=== PATIENT | male | born 1985 | race Caucasian/White ===

== ENCOUNTER 2020-07-21 07:22 | Observation (INO) ==
--- NOTE | 2020-07-06 10:17 | Anesthesiology Consultation ---
Date of Service July 06, 2020 Assessment & Plan (1) Encounter for pre-operative examination: Chart Review Chart Review: Acceptable Risk for Surgery (pending preop Covid testing ) and Patient NOT seen in Pre Admission Testing Per nursing assessment 07/06/2020, patient resides in [facility]. Travels to [facility] for medical appts. Wears PPE when required in public places (nursing did educate patient on self quarantining after Covid test and limiting travel/wearing PPE). No known Covid positive contacts or Covid related symptoms. No known Covid infection in the past 90 days. Pt scheduled for preop Covid testing 07/19/20= will await results. History Surgery Operation Date: 07/26/20 07:15 Proposed Procedures p L4-L5 Decompression with Coflex - Mahesh Hernandez DO Height/Weight Height: 5 ft 6 in Weight: 84.368 kg Allergies Allergy/AdvReac Type Severity Reaction Status Date / Time No Known Allergies Allergy Verified 07/06/20 08:06 Medications Home Medications Medication Instructions Recorded Confirmed Last Taken gabapentin 300 mg PO TID 07/06/20 07/06/20 Unknown oxycodone 10 mg PO Q4H PRN 07/06/20 07/06/20 Unknown Past Medical History Medical History Epistaxis FREQUENT IN FALL & WINTER Lumbar herniated disc Ruptured lumbar disc Spinal stenosis Past Family History Family History Other Family history of diabetes mellitus in grandfather Past Surgical History Surgical History History of hernia surgery Social History Smoking Status: Never smoker Do You Dip or Chew Tobacco: No (HX OF , NONE CURRENT / ADVISED NPO) Hx Alcohol Use: Yes (RARE) alcohol intake frequency: holidays/special occasions only substance use type: prescription drug Testing Laboratory Results Laboratory Tests 07/04/20 07/04/20 07/04/20 09:35 09:35 09:35 WBC 5.60 Hgb 15.7 Hct 45.9 Plt Count 177 PT 10.3 INR 1.0 Sodium 139 Potassium 4.2 Chloride 108 H Carbon Dioxide 29 BUN 14 Creatinine 0.84 Glucose 92 07/04/2020 = UA: Negative T&S: O positive, antibody negative Electrocardiogram Date: 07/04/20 Findings: + NSR @ (61 bpm) Poor data quality Early repolarization. Chest X-Ray Date: 07/04/20 Findings: + NAD
[~2020-07-21 07:22] MED LIST: ACETAMINOPHEN 500 MG TAB PO SCH; CeleBREX 200 MG CAP PO SCH; GABAPENTIN 900 MG DOSE PO SCH; LR 15ML/HR IV SCH; ceFAZolin 2000MG 2,000 MG/15 ML SYR IV SCH
[2020-07-21] MEDS ORDERED: ATROPINE SULFATE 0.1 MG/ML 10ML SYR IV PRN (08:30)
[2020-07-21] MEDS ORDERED: ONDANSETRON INJ 2 MG/ML 2 ML VIAL IV PRN ×2 (08:30→13:05)
[2020-07-21] MEDS ORDERED: HYDROmorphone INJ 2 MG/ML SYR/VIAL IV PRN (08:30)
[2020-07-21] MEDS ORDERED: ePHEDrine sulfate 50 MG/ML AMP IV PRN (08:30)
[2020-07-21] MEDS ORDERED: PROMETHAZINE HCL 12.5 MG in SODIUM CHLORIDE 0.9% 50 ML IV PRN ×2 (08:30→13:05)
[2020-07-21] MEDS ORDERED: fentaNYL citrate 100 MCG/2 ML VIAL ONE (09:21)
[2020-07-21] MEDS ORDERED: MIDAZOLAM HCL 1 MG/ML 2ML VIAL ONE (09:21)
--- NOTE | 2020-07-21 09:38 | History & Physical Bridge Note ---
Date of Service July 21, 2020 History & Physical Bridge Note I have examined the patient, reviewed the History & Physical and in the interval since the performance of the History & Physical I have noted the following changes of clinical significance: no changes noted
--- NOTE | 2020-07-21 09:39 | History & Physical Report ---
Date of Service July 21, 2020 Assessment & Plan (1) Lumbar disc herniation with radiculopathy: Admission and Anticipated Discharge Date Admission Date: L4-L5 decompression with Coflex History of Present Illness Chief Complaint: Back and leg pain Primary Care Provider: Cachorro Saenz This is a 35-year-old male who presents with chronic persistent back and leg pain. After failing course of nonoperative care is here for surgical invention. Allergies Allergy/AdvReac Type Severity Reaction Status Date / Time No Known Allergies Allergy Verified 07/21/20 07:36 Home Medications Medication Instructions Recorded Confirmed Type gabapentin 300 mg PO TID 07/06/20 07/21/20 History oxycodone 10 mg PO Q4H PRN 07/06/20 07/21/20 History Past Med/Surg History Medical History Epistaxis FREQUENT IN FALL & [place]INTER Lumbar herniated disc Ruptured lumbar disc Spinal stenosis Surgical History History of hernia surgery Family History Other Family history of diabetes mellitus in grandfather Social History Smoking Status: Never smoker Do You Dip or Chew Tobacco: No (HX OF , NONE CURRENT / ADVISED NPO); Hx Alcohol Use: Yes (RARE) Preferred Language: Citizen Of [place] Communication Ability: Effective Safety Grooving Machine Operator Required: No Beliefs That Will Affect Care: None Current Living Situation: Spouse and Family Other Information That Helps Us Care for You: No Feels Safe at Home: Yes Assistive Devices: Glasses Physical Exam Physical Exam: Patient is alert and oriented Heart regular rate and rhythm Lungs clear to auscultation Results & Data ([facility]) Vital Signs (Past 12 Hours) Vital Signs Temp Pulse Resp BP Pulse Ox 07/21/20 07:38 36.6 C 62 18 137/83 99
[2020-07-21] MEDS ORDERED: DexMEDEtomidine HCL IV 100 MCG/ML VIAL ONE (10:13)
[2020-07-21] MEDS ORDERED: BACITRACIN INJ 50,000 UNIT VIAL ONE (10:17)
[2020-07-21] MEDS ORDERED: BUPIVACAINE/EPINEPHRINE 0.5% MPF 1:200,000 30 ML VIAL ONE (10:17)
[2020-07-21] MEDS ORDERED: HYDROmorphone INJ 2 MG/ML SYR/VIAL ONE (10:49)
--- NOTE | 2020-07-21 11:25 | Operative Report ---
Post Operative Report Pre & Post Diagnosis Operation Date: 07/21/20 09:20 Pre-Op Diagnosis: Lumbar disc herniation with radiculopathy Post-Op Diagnosis: Lumbar disc herniation with radiculopathy I identified the patient and participated in the time-out.: Yes Procedure Operation Date: 07/21/20 09:20 Actual Procedures #1 Lumbar decompression with bilateral medial facetectomies and partial discectomy L4-5. #2 placement of 12 mm Coflex at L4-L5. Surgeon Mahesh Hernandez, DO Mechanic Insulator Cade Bourne Estimated Blood Loss 20 Findings Consistent with Post-Op Diagnosis Specimens None Indications This is a 35-year-old male who presents with severe radiculopathy after failing course of nonoperative care is here for surgical invention. Description of Procedure Patient was met with identified informed consent obtained. Patient was then taken to the operative suite underwent an patient placed in a prone position Nura table top Solomon frame. All bony prominences well-padded eyes inspected to ensure no external pressure placed upon them. This point the lumbar spine was prepped and draped in a sterile fashion. Sharp dissection with the assistance of Bovie cautery was performed down to and exposing the interlaminar space at L4-L5. A self-retaining retractors placed. Then performed a midline decompression including bilateral medial facetectomies for complete decompression. I then identified a massive disc condition at L4-L5 on the left. Was able to remove in its entirety. The area was explored several times to ensure all fragments addressed. I then placed a 12 mm Coflex in the interlaminar space. It was crimped into position. The incision was then copi ously irrigated 10 round ADAIR drain inserted. Was then closed with 1 Vicryl the fascia 2-0 Vicryl subcutaneously and 4 Monocryl for final skin closure. Steri- Strip sterile dressings placed. Patient waken taken PACU stable condition. Please note Cade Bourne was present at the entire procedure involved the patient positioning complex portions of the surgery and final skin closure. I attest to the content of the Intraoperative Record and any orders documented therein. Any exceptions are noted below.
[2020-07-21] MEDS ORDERED: FLOSEAL HEMOSTATIC MATRIX 10ML TOP ONE (11:26)
--- NOTE | 2020-07-21 11:43 | Fluoroscopy Report ---
FL spine 1V any level HISTORY: 35 years-old Male L4-L5 DECOMPRESSION WITH COFLEX history of chronic low back pain COMPARISON: None TECHNIQUE: One lateral spot fluoroscopic image of the lumbar spine was obtained utilizing 6.6 seconds fluoroscopy time FINDINGS: There is a spacer type metallic surgical device present interposed between the fourth and fifth spino us processes. Alignment appears satisfactory. Partially imaged radiodense structure anterior to the s acral promontory is likely external to the patient. IMPRESSION: Fluoroscopic assistance as above. ACT 112: Negative or not required by law. The above report was generated using voice recognition software. It may contain grammatical, syntax o r spelling errors. Electronically signed by: Israel Artis M.D. 07/21/2020 11:42 AM
[2020-07-21] MEDS: fentaNYL citrate 100 MCG/2 ML VIAL IV PRN ×2 (11:58→12:03)
--- NOTE | 2020-07-21 12:25 | Anesthesiology Progress Note ---
Date of Service July 21, 2020 Anesthesia Post Procedure Vital Signs Vital Signs: Temp Pulse Pulse Resp BP Pulse Ox 07/21/20 12:15 81 19 110/74 100 07/21/20 12:05 70 24 118/71 98 07/21/20 11:55 69 20 113/72 100 07/21/20 11:47 36.6 C 77 18 113/69 100 07/21/20 07:38 36.6 C 62 18 137/83 99 Pain Intensity Left Lower Back: Pain Intensity: 3 Transfer of Care Handoff Completed per policy Notes Mental Status: alert / awake / arousable and participated in evaluation Patient Amnestic to Procedure: Yes Nausea / Vomiting: adequately controlled Pain: adequately controlled Airway Patency, RR, SpO2: stable & adequate BP & HR: stable & adequate Hydration State: stable & adequate Anesthetic Complications: no major complications apparent and Pt Satisfied with anesthetic care
[2020-07-21] MEDS ORDERED: DO NOT ADMINISTER PNEUMOCOCCAL VACCINE PRN (13:05)
[2020-07-21] MEDS ORDERED: traMADol HCL 50 MG TABLET PO PRN (13:05)
[2020-07-21] MEDS ORDERED: ACETAMINOPHEN 500 MG TAB PO PRN (13:05)
[2020-07-21] MEDS ORDERED: LORazepam 0.5 MG TAB PO PRN (13:05)
[2020-07-21] MEDS ORDERED: ACETAMINOPHEN 1,000 MG/100 ML VIAL IV PRN (13:05)
[2020-07-21] MEDS ORDERED: NALOXONE HCL 0.4 MG/1 ML VIAL/CARP IV PRN (13:05)
[2020-07-21] MEDS ORDERED: hydrOXYzine HCl 25 MG TAB PO PRN (13:05)
[2020-07-21] MEDS ORDERED: LORazepam 0.5 MG/1 ML VIAL IV PRN (13:05)
[2020-07-21] MEDS ORDERED: SOD PHOSPHATE/SOD BIPHOSPHATE ENEMA 132 ML BTL PR PRN (13:05)
[2020-07-21] MEDS ORDERED: HYDROmorphone INJ 0.5 MG/0.5 ML SYR IV PRN (13:05)
[2020-07-21] MEDS ORDERED: METOCLOPRAMIDE HCL INJ 5 MG/ML 2 ML VIAL IV PRN (13:05)
[2020-07-21] MEDS ORDERED: FAMOTIDINE 20 MG TAB PO PRN (13:05)
[2020-07-21] MEDS ORDERED: diphenhydrAMINE Capsule 25 MG CAP PO PRN (13:05)
[2020-07-21] MEDS ORDERED: DO NOT ADMINISTER FLU VACCINE PRN (13:05)
[2020-07-21] MEDS ORDERED: ALUMINUM/MAGNESIUM SUSP 30 ML UDC PO PRN (13:05)
[2020-07-21] MEDS ORDERED: HYDROmorphone INJ 1 MG/ML SYRINGE IV PRN (13:05)
[2020-07-21] MEDS ORDERED: MAGNESIUM HYDROXIDE SUSP 30 ML UDC PO PRN (13:05)
[2020-07-21] MEDS ORDERED: bisacodyL 10 MG SUPP PR PRN (13:05)
[2020-07-21] MEDS ORDERED: ONDANSETRON 4 MG OD TAB PO PRN (13:05)
[2020-07-21] MEDS: LACTATED RINGER'S 1,000 ML IV SCH (14:12)
[2020-07-21] MEDS: oxyCODONE HCL IR 5 MG TAB (IMMEDIATE RELEASE) PO PRN ×3 (14:15→22:27)
[2020-07-21] MEDS: GABAPENTIN 300 MG CAP PO SCH ×2 (14:54→20:04)
[2020-07-21] MEDS: KETOROLAC 30 MG/ML VIAL IV PRN (17:02)
[2020-07-21] MEDS: ceFAZolin 2000MG 2,000 MG/15 ML SYR IV SCH (18:22)
[2020-07-21] MEDS ORDERED: DOCUSATE SODIUM/SENNA 50/8.6MG TAB PO SCH (21:00)
[2020-07-22] MEDS: LACTATED RINGER'S 1,000 ML IV SCH (01:14)
[2020-07-22] MEDS: ceFAZolin 2000MG 2,000 MG/15 ML SYR IV SCH (01:37)
[2020-07-22] MEDS: KETOROLAC 30 MG/ML VIAL IV PRN ×2 (01:37→10:02)
[2020-07-22] MEDS: oxyCODONE HCL IR 5 MG TAB (IMMEDIATE RELEASE) PO PRN ×3 (03:20→11:46)
[2020-07-22] MEDS ORDERED: POLYETHYLENE (MIRALAX) 17 GM PACK PO SCH (06:00)
[2020-07-22] MEDS: GABAPENTIN 300 MG CAP PO SCH (07:41)
--- NOTE | 2020-07-22 10:54 | Discharge Summary ---
Date of Service July 22, 2020 Admission HPI Per Admitting Provider This is a 35-year-old male who presents with chronic persistent back and leg pain. After failing course of nonoperative care is here for surgical invention. Principal Diagnosis Lumbar spinal stenosis with disc herniation Discharge Data Allergies Allergy/AdvReac Type Severity Reaction Status Date / Time No Known Allergies Allergy Verified 07/21/20 07:36 Procedures Performed Operation Date: 07/21/20 09:20 Actual Procedures p L4-L5 Decompression with Coflex(Not Applicable) - Mahesh Hernandez DO Ordered Studies 07/21/20 09:20 FL fluoroscopy <1hr Routine FL spine 1V any level Routine Hospital Course (1) Lumbar disc herniation with radiculopathy: Patient went lumbar decompression discectomy and Coflex implantation. Postoperatively she was taken to the floor and felt marked improvement of his leg. Postop day #1 ADAIR drain decreases appropriately. Excellent strength testing. Pain well controlled. Subsequent discharge home. Discharge orders instructions from the chart for further review. Total Time Total Time Spent Total Time Spent (In Minutes): 20 minutes Discharge Plan Discharge Items Patient Disposition: Home - Self-Care Reason For Visit: Unspecified Thoracic, Thoracolumbar and Lumbosacra Discharge Diagnosis: Lumbar disc condition with radiculopathy Activity: As commented below Non-emergency contact: Primary Care Provider Call non-emergency contact if: you have any medication questions Follow-up/Referrals: Cachorro Saenz D.O. [Primary Care Provider] - Diet: Regular Addtl Attending Provider Instructions: ACTIVITY RECOMMENDATIONS: SELF CARE INSTRUCTIONS AFTER A LAMINECTOMY 1. No prolonged sitting (less than 30 minutes for the first 3 weeks after surgery). 2. No bending, lifting more than 5 pounds, or twisting (roll like a log when turning in bed). 3. You may shower 3 days after surgery if no drainage from wound. Thoroughly dry wound. Do not soak in the tub. 4. Please walk as much as you can for exercise. Gradually increase the distance that you walk as your endurance increases. 5. You may drive in 7-10 days if you are comfortable and no longer requiring pain medications. SPECIAL CARE INSTRUCTIONS: VERY IMPORTANT TO READ AND REVIEW A. Your surgical incision has been closed with a cosmetic suture under the skin that will dissolve in about 6 weeks. In 14 days, you can use a pair of clean scissors and cut the suture that is left outside of the skin at the ends of your incision. B. Complications are uncommon, but please contact us if you have any signs or symptoms of: 1. wound infection (fever higher than 102.5 degrees F, redness, separation of wound, drainage, or increasing pain from the incision) 2. blood clots in legs (pain, swelling, redness and warmth in legs) 3. urinary tract infection (fever higher than 102.5 degrees, burning upon urination or increased frequency of urination) 4. nerve problems (inability to walk on your toes or heels, numbness, loss of bowel or bladder control) 5. any other symptoms that concern you. C. Please call the office at if you have any concerns or questions about your operation or recovery. MANAGING PAIN AFTER SPINAL SURGERY 1. Narcotic medication is intended for short-term use and will be provided for surgical pain. Surgical pain usually lasts for a period of 4-6 weeks. Narcotic medication includes Percocet, Vicodin, Darvocet, Tylenol #3 or Lortab. 2. Longer-term pain is more appropriately treated with non-narcotic medication such as Tylenol ES. 3. Muscle spasm is not appropriately treated with narcotics. Muscle relaxers such as Soma, Flexeril or Skelaxin can be used along with Tylenol ES. 4. Remember that we all live with some "aches and pains". This is not unusual or uncommon after an injury or as we get older. 5. We will provide appropriate medication within the normal guidelines of their prescribed use. We will also be very cautious and aware of potential abuse and extended duration of patients' medication needs. 6. Please allow 2-3 days to process refills. Prescriptions will not be mailed but must be picked up at the office. FOLLOW UP VISIT: Keep your scheduled follow-up appointment. Any questions, please call the office at . Pending Studies at Discharge: No Stand-Alone Forms: [email or web address], Smoking Cessation Medications and DC Order Prescriptions: New tramadol 50 mg tablet 50 mg PO Q6H PRN (Reason: pain, moderate) Qty: 30 RF: 0 oxycodone 5 mg tablet 5 mg PO Q6H PRN (Reason: pain, severe) Qty: 30 RF: 0 Continued gabapentin 300 mg Tablet 300 mg PO TID RF: 0 oxycodone 10 mg Tablet 10 mg PO Q4H PRN (Reason: Pain) RF: 0 Discharge Orders: Discharge Order (Routine); Ordered 07/22/20 Ordered By: Mahesh Hernandez Admission Data Admit Date/Time: 07/21/20 11:37 Attending Provider: Mahesh Hernandez Admit Provider: Mahesh Hernandez Primary Care Provider: Cachorro Saenz
== END 2020-07-22 12:10 | disposition home or self-care (01) ==
LOC: 3E 07:22 → ASU 07:22